=== PATIENT | female | born 1970 | race Two or more races ===

== ENCOUNTER 2017-06-19 20:12 | Emergency (ER) | payer MEDICAID ==
[~2017-06-19] VITALS: Ht 160 cm; Wt 77.1 kg
--- NOTE | 2017-06-19 22:01 | NUR ---
Patient exited room yelling after receiving a phone call. Patient has not been seen by ERMD at this time, yelled "this is the worst ER I have ever seen" and walked out of the ER. Patient was observed to have been agitated by a telephone call in which she was arguing with an unknown person. ERMD notified.
--- NOTE | 2017-06-19 22:03 | NUR ---
Patient eloped from facility. ER physician notified.
== END 2017-06-19 22:05 | disposition left against medical advice (07) ==
LOC: ER 20:12
DX: M79.7 Fibromyalgia (principal); F17.200 Nicotine dependence, unspecified, uncomplicated
CPT/HCPCS: A4663

== ENCOUNTER 2017-06-20 00:51 | Emergency (ER) | payer MEDICAID ==
[~2017-06-20] VITALS: Ht 160 cm; Wt 77.1 kg
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
--- NOTE | 2017-06-20 01:43 | NUR ---
Dr. Muir at bedside for MSE
[2017-06-20 02:01] LABS: *BILIRUBIN,URIN NEGATIVE (NEGATIVE); *BLOOD, URINE NEGATIVE (NEGATIVE); *CLARITY,URINE CLOUDY (CLEAR); *COLOR,URINE YELLOW (YELLOW); *KETONES,URINE NEGATIVE (NEGATIVE); *PROTEIN,URINE NEGATIVE (NEGATIVE); LEUKOCYTE ESTERASE ,URINE 2+ (NEGATIVE); NITRITE, URINE POSITIVE (NEGATIVE); UGLUCOSE NEGATIVE (NEGATIVE)
[2017-06-20 02:17] LABS: BASOPHILS # (AUTO) 0.1 K/uL (0.0-8.0); BASOPHILS % (AUTO) 0.8 % (0.0-2.0); EOSINOPHILS # (AUTO) 0.1 K/uL (0.0-0.7); EOSINOPHILS % (AUTO) 1.2 % (0.0-7.0); HEMATOCRIT 38.1 % (37-47); HEMOGLOBIN 13.1 G/DL (12.0-16.0); LYMPHOCYTES # (AUTO) 1.7 K/UL (0.8-4.8); LYMPHOCYTES % (AUTO) 21.4 % (20.5-51.5); MEAN CORPUSCULAR HEMOGLOBIN 32.4 UUG (27.0-31.0); MEAN CORPUSCULAR HGB CONC 34 g/dL (32.0-37.0); MEAN CORPUSCULAR VOLUME 94.5 FL (81.0-99.0); MONOCYTES # (AUTO) 0.6 K/UL (0.1-1.30); MONOCYTES % (AUTO) 7.8 % (0.0-11.0); NEUTROPHILS # (AUTO) 5.7 K/UL (1.8-8.9); NEUTROPHILS % (AUTO) 68.8 % (38.5-71.5); PLATELET COUNT (AUTO) 322 K/UL (150-450); RED BLOOD CELL COUNT(AUTO) 4.03 MIL/UL (4.2-5.4); WHITE BLOOD COUNT (AUTO) 8.2 K/UL (4.0-11.2)
[2017-06-20 02:23] LABS: ALANINE AMINOTRANSFERASE 50 U/L (14-59); ALKALINE PHOSPHATASE 90 U/L (50-136); ASPARTATE AMINOTRANSFERASE 32 U/L (15-37); BILIRUBIN,DIRECT 0.1 mg/dL (0.0-0.2); BILIRUBIN,TOTAL 0.2 mg/dL (0.2-1.0); CARBON DIOXIDE 30 mmol/L (21-32); CHLORIDE 104 mmol/L (98-107); CREATININE 0.9 mg/dL (0.6-1.3); GLUCOSE 101 mg/dL (74-106); POTASSIUM 3.8 mmol/L (3.5-5.1); TOTAL PROTEIN, SERUM 7.6 g/dL (6.4-8.2); UREA NITROGEN, BLOOD 23 mg/dL (7-18)
[2017-06-20 02:32] LABS: ACETAMINOPHEN < 2.0 ug/mL (10-30)
[2017-06-20 02:33] LABS: *AMPHETAMINE, URINE NEGATIVE (NEGATIVE); *BARBITURATE, URINE NEGATIVE (NEGATIVE); *CANNABINOID, URINE NEGATIVE (NEGATIVE); *COCCAINE, URINE NEGATIVE (NEGATIVE); *OPIATE, URINE NEGATIVE (NEGATIVE); *PHENCYCLIDINE SCREEN,URINE NEGATIVE (NEGATIVE); *URINE HCG, QUAL NEGATIVE (NEGATIVE); BACTERIA,URINE MANY /HPF (NONE SEEN); SQUAMOUS EPITHELIAL CELL,UR MANY /HPF (NONE SEEN); WBC,URINE 50-80 /HPF (0-3)
[2017-06-20 02:47] LABS: ETHANOL < 3 MG/DL (0-0)
--- NOTE | 2017-06-20 03:01 | NUR ---
PATIENT SLEEPING IN ROOM WITH NO DISTRESS NOTED
--- NOTE | 2017-06-20 06:00 | NUR ---
MEDICALLY CLEARED BY DR RENE
--- NOTE | 2017-06-20 07:00 | NUR ---
Dr Quinn into re eval Patient. Patient denies SI,SOB. Patient only requesting for antibiotic for feet and sleeping medication. Dr Quinn aware
[2017-06-20 07:18] VITALS: BP 118/62
--- NOTE | 2017-06-20 07:23 | NUR ---
Patient discharged to home in stable conditon. Written and verbal after care instructions given. Patient verbalizes understanding of instructions.
--- NOTE | 2017-06-20 07:27 | NUR ---
Pt is in room 2b, pt has been d/c but is refusing to leave. Pt yelling at staff and threatening staff. Disha summers called. Disha summers team, including security and nursing [employer] food shift supervisor at bedside.
--- NOTE | 2017-06-20 07:45 | NUR ---
Pt seen walking out of the ER dept with steady gait, code summers cleared.
== END 2017-06-20 07:24 | disposition home or self-care (01) ==
LOC: ER 00:54
DX: F23 Brief psychotic disorder (principal); F17.200 Nicotine dependence, unspecified, uncomplicated
CPT/HCPCS: 36415; 80307; 84703; 85025; A4663; G0480; G0480-TC